=== PATIENT | female | born 1965 | race Caucasian/White ===

== ENCOUNTER 2016-12-18 10:53 | Observation (INO) | payer OTHER ==
[~2016-12-18] VITALS: Ht 165.1 cm; Wt 75.5 kg
[2016-12-18] MEDS ORDERED: FAMOTIDINE IV BAG 20 MG in APPROPRIATE DILUENT 1 EA IV ONE (12:30)
[2016-12-18] MEDS ORDERED: ACETAMINOPHEN 325 MG TAB PO ONE (12:30)
[2016-12-18] MEDS ORDERED: methylPREDNISolone INJ 125 MG/2 ML VIAL (J2930) IV ONE (12:30)
[2016-12-18] MEDS ORDERED: diphenhydrAMINE INJ 50MG/ML VIAL (J1200) IV ONE (12:30)
[2016-12-18] MEDS ORDERED: NS 1,000 ML IV ONE ×2 (12:30→15:30)
[2016-12-18] MEDS ORDERED: IBUPROFEN 800 MG TAB PO ONE (12:30)
[2016-12-18 12:47] LABS: BASO % 0.2 % (0.0-1.0); EOS # 0.4 K/mm3 (0.0-0.50); EOS % 2.8 % (0.0-3.0); LARGE UNSTAINED CELL # 0.2 K/mm3 (0.0-0.4); LARGE UNSTAINED CELL % 0.9 % (0.0-4.0); LYMPH # 0.9 K/mm3 (1.5-4.5); LYMPH % 4.3 % (24.0-44.0); MEAN CORPUSCULAR HEMOGLOBIN 29.7 pg (27.0-33.0); MEAN CORPUSCULAR HGB CONC 34.5 g/dl (32.0-36.5); MONO # 0.3 K/mm3 (0.0-0.8); NEUTROPHILS # 14.7 K/mm3 (1.8-7.7); NEUTROPHILS % 89.9 % (36.0-66.0); PLATELET COUNT, AUTOMATED 178 k/mm3 (150-450); RED CELL DISTRIBUTION WIDTH 13.2 % (11.5-14.5); WHITE BLOOD COUNT 16.3 K/mm3 (4.0-10.0)
[2016-12-18 13:02] LABS: ANION GAP 9 MEQ/L (8-16); BLOOD UREA NITROGEN 13 MG/DL (7-18); CALCIUM LEVEL 7.9 MG/DL (8.5-10.1); CARBON DIOXIDE LEVEL 22 MEQ/L (21-32); CHLORIDE LEVEL 103 MEQ/L (98-107); GLOMERULAR FILTRATION RATE > 60.0 (>58); GLUCOSE, FASTING 99 MG/DL (70-105); SODIUM LEVEL 134 MEQ/L (136-145)
--- NOTE | 2016-12-18 13:11 | REP ---
Chest x-ray: Two views. History: Cough. . Comparison study: No comparison study . Findings: The lungs are well inflated and free of infiltrate. The pleural angles are sharp. The heart size is normal. Pulmonary vasculature is not increased. No significant bony abnormality is seen. Impression: Negative chest x-ray. Signed by Anam Rodriguez MD 12/18/2016 01:04 P
[2016-12-18 13:49] LABS: ERYTHROCYTE SEDIMENTATION RATE 16 mm/hr (0-20)
[2016-12-18] MEDS ORDERED: ACETAMINOPHEN 500 MG TAB PO PRN (16:30)
[2016-12-18 18:30] VITALS: BP 113/61
[2016-12-18] MEDS: FAMOTIDINE IV BAG 20 MG in APPROPRIATE DILUENT 1 EA IV SCH (21:08)
[2016-12-18] MEDS: diphenhydrAMINE 50 MG CAP PO PRN (22:21)
[2016-12-19] VITALS: BP 96/55
[2016-12-19 04:00] VITALS: BP 101/60
[2016-12-19 07:10] LABS: BASO % 0.2 % (0.0-1.0); EOS % 0.1 % (0.0-3.0); LARGE UNSTAINED CELL # 0.1 K/mm3 (0.0-0.4); LARGE UNSTAINED CELL % 0.6 % (0.0-4.0); LYMPH % 4.8 % (24.0-44.0); MEAN CORPUSCULAR HEMOGLOBIN 29.4 pg (27.0-33.0); MEAN CORPUSCULAR HGB CONC 34.1 g/dl (32.0-36.5); MEAN CORPUSCULAR VOLUME 86.2 fl (80.0-96.0); MONO # 0.4 K/mm3 (0.0-0.8); MONO % 2.4 % (0.0-5.0); NEUTROPHILS # 16.7 K/mm3 (1.8-7.7); NEUTROPHILS % 91.9 % (36.0-66.0); PLATELET COUNT, AUTOMATED 194 k/mm3 (150-450); RED CELL DISTRIBUTION WIDTH 13.3 % (11.5-14.5); WHITE BLOOD COUNT 18.2 K/mm3 (4.0-10.0)
[2016-12-19 07:32] LABS: BLOOD UREA NITROGEN 14 MG/DL (7-18); CARBON DIOXIDE LEVEL 21 MEQ/L (21-32)
[2016-12-19 07:41] LABS: ANION GAP 8 MEQ/L (8-16); CALCIUM LEVEL 7.8 MG/DL (8.5-10.1); CHLORIDE LEVEL 112 MEQ/L (98-107); CREATININE FOR GFR 0.67 MG/DL (0.55-1.02); GLOMERULAR FILTRATION RATE > 60.0 (>58); GLUCOSE, FASTING 145 MG/DL (70-105); SODIUM LEVEL 141 MEQ/L (136-145)
[2016-12-19 08:00] VITALS: BP 109/62
[2016-12-19 08:22] LABS: FERRITIN 90 NG/ML (8-252)
[2016-12-19 08:35] LABS: ERYTHROCYTE SEDIMENTATION RATE 28 mm/hr (0-20)
[2016-12-19] MEDS: FAMOTIDINE IV BAG 20 MG in APPROPRIATE DILUENT 1 EA IV SCH (09:04)
[2016-12-19] MEDS: diphenhydrAMINE 50 MG CAP PO PRN (09:04)
[2016-12-19] MEDS ORDERED: DIPH50CA PO (10:40)
[2016-12-19] MEDS ORDERED: PRED10TA PO (10:40)
[2016-12-19] MEDS ORDERED: methylPREDNISolone INJ 40 MG/1 ML VIAL (J2920) IV SCH (12:00)
--- NOTE | 2016-12-19 18:05 | DSES ---
DATE OF ADMISSION: 12/18/2016 DATE OF DISCHARGE: 12/19/2016 DISCHARGE DIAGNOSIS: Drug rash. SECONDARY DIAGNOSIS: Dog bite. HOSPITAL COURSE: The patient is a 51-year-old female who initially presented to the emergency room for a red rash diffusely throughout her body, maculopapular in nature. She reportedly had a dog bite and had completed 10 days of amoxicillin and during the last day of amoxicillin began to turn red with a pruritic rash that progressively worsened over the next several days prompting her to present to the emergency room yesterday. She denies shortness of breath or associated abdominal discomfort. The patient had blood cultures done which were no growth at 24 hours, urine culture which was negative. At the time of her presentation she did have leukocytosis and was tachycardic, febrile to 102.4. She was admitted to the medical/surgical floor and treated with IV Solu-Medrol. The next day her symptoms had resolved significantly to the point she was requesting to go home. She was afebrile and doing much better and feeling better than she had in many days. SUBJECTIVE: The patient reports she feels well and wants to go home. No complaints. OBJECTIVE: VITAL SIGNS: Temperature 98.7, pulse 77, respiratory rate 16, blood pressure 109/62, oxygen saturation 96% in room air. GENERAL: She has generalized maculopapular rash, nonpruritic in nature, blanchable, throughout her body but is significantly improved from yesterday as per her report. She is in no distress. HEENT: Cranial nerves II-XII are grossly intact. CARDIOVASCULAR EXAM: S1, S2, regular. RESPIRATORY EXAM: Clear, no wheeze. ABDOMINAL EXAM: Benign. EXTREMITIES: No clubbing, cyanosis, or edema. LABORATORY STUDIES: WBC 18.2, hemoglobin 12.3, platelet count 194 with a neutrophilic predominance. Chemistry panel: Sodium 141, potassium 4.0, chloride 112, bicarbonate 21, BUN 14, creatinine 0.6. Urinalysis is unremarkable. Urine culture and blood culture is negative. Chest xray was a negative chest study. ASSESSMENT AND PLAN: This is a 51-year-old female with a drug rash. 1. Drug rash, improving with IV Solu-Medrol. I will discharge her with 3 days of 20 mg of prednisone as well as as-needed Benadryl. Close followup with her primary care provider within the next 7 days. Clinical status is significantly improved. Greater than 30 minutes spent organizing disposition.
--- NOTE | 2016-12-19 19:45 | HPE ---
DATE OF ADMISSION: 12/18/2016 PRIMARY CARE PROVIDER: Meche Li CHIEF COMPLAINT: Erythematous itchy rash all over the body for two days. PAST MEDICAL HISTORY: None. HISTORY OF PRESENT ILLNESS: The patient sustained a dog bite over two weeks ago. Patient was started on Augmentin for the dog bite. Finished the last dose of Augmentin three days ago. Two days ago started to develop an itchy rash, erythematous all over the body along with tightness of the tongue and shortness of breath which was getting worse so the patient came to the emergency room. In the emergency department (ED) the patient was found to be febrile to 102 with elevated white count of 16.6 and there was a maculopapular erythematous rash all over the body but not involving the palms or soles. The rash was more discrete in the extremities and it was more confluent over the back and the abdomen. There was also a whitish coating of the tongue. Patient at home denied having any fever or chills. Denied any headache, neck pain, confusion. Patient did have some diarrhea and abdominal pain while she was taking the antibiotic but at present denied any abdominal pain, nausea, vomiting or diarrhea. Denied any chest pain. Denied any shortness of breath. Patient had a slight down trending of blood pressure while in the emergency room, which on presentation, the presenting blood pressure was 127/73. It did go down to 96/53 in the emergency room and then improved after some intravenous (IV) fluid bolus. Subsequently the hospitalist service was consulted for admission for the acute drug rash and rule out other secondary infection. PAST SURGICAL HISTORY: section times three, dilatation and curettage, had some nasal surgery. ALLERGIES: No known drug allergies. SOCIAL HISTORY: The patient does not smoke, does not abuse alcohol or recreational drugs. FAMILY HISTORY: Nothing significant. REVIEW OF SYSTEMS: All ten-point review of systems were negative except those mentioned in history of present illness. PHYSICAL EXAMINATION: GENERAL: The patient awake, alert, oriented times three, laying down in bed in no acute distress. VITAL SIGNS: Temperature: 102.4, pulse 119, respiratory rate 20, blood pressure 127/73, pulse oximetry 99% on room air. HEENT: Normocephalic, atraumatic. Moist mucous membranes. Anicteric eyes. CHEST: Clear to auscultation. CARDIOVASCULAR: S1, S2 regular. No rub, murmur or gallop. ABDOMEN: Soft, nontender. Bowel sounds present. EXTREMITIES: No edema. SKIN: There is an erythematous maculopapular rash involving all four extremities as well as the abdomen, chest and back. The rash is more confluent, giving the appearance of generalized erythema on the front of the body, none on the back. On the limbs the rash is more discrete. There were no pustules. There was no skin sloughing. No involvement of the mucous membranes. There were no bullae. LABORATORY DATA: WBC 16.3, hemoglobin 13.9, platelets 178. Sodium 134, potassium 4, chloride 103, bicarbonate 22, BUN 13, creatinine 0.9, lactic acid 1.3, calcium 7.9, CRP 9. Urinalysis negative. Blood cultures and urine culture, chest x-ray negative. ASSESSMENT AND PLAN: This is a 51-dawn-old female admitted for acute drug reaction. PLAN: 1. Acute drug reaction, most probably to Augmentin. We will place the patient on Benadryl and famotidine. Patient already received 1 dose of methylprednisolone today. If required we will give another dose tomorrow. However in view of fever and elevated white count, slight decrease in blood pressure while the patient was in the emergency room, we will admit the patient for observation to rule out any other source of infection, especially we will have to keep in mind the possibility of meningitis in view of fever and rash; however, patient does not have any meningeal signs. Patient was given 2 grams of ceftriaxone. If patient's symptom resolve and fever goes down we will not continue antibiotics. 2. Dog bite. The patient was bitten by a foster dog. As per the patient the dog is up to date on immunizations. The area of the dog bite seems to be well healed and now has a scab over it. 3. Deep venous thrombosis (DVT) prophylaxis has been ordered. 4. Gastrointestinal (GI) prophylaxis is in place.
== END 2016-12-19 11:54 | disposition home or self-care (01) ==
LOC: M ED 12:28 → M ED INP 16:19 → M PED 18:02
PROVIDERS: ADMIT Internal Medicine Nephrology; ATTEND Internal Medicine
DX: R21 Rash and other nonspecific skin eruption (principal); T36.0X5A Adverse effect of penicillins, initial encounter; X58.XXXA Exposure to other specified factors, initial encounter; Y92.099 Unspecified place in other non-institutional residence as the place of occurrence of the external cause; R00.0 Tachycardia, unspecified; R50.9 Fever, unspecified; D72.829 Elevated white blood cell count, unspecified; Z88.8 Allergy status to other drugs, medicaments and biological substances
CPT/HCPCS: 36415; 71020; 80048; 81001; 82728; 83605; 85025; 85652; 86140; 87040; 87086; 96361; 96374; 96375; 96376; 99284; J1200; J2930

== ENCOUNTER → 2019-02-17 | Outpatient (REF) | payer OTHER, SELFPAY ==
[~2019-02-17] MED LIST: DIPH50CA PO; PRED10TA2 PO
== END ==
LOC: M LAB REF 16:21
PROVIDERS: ATTEND Family Medicine
DX: Z12.4 Encounter for screening for malignant neoplasm of cervix (principal)